=== PATIENT | male | born 1940 | race Caucasian/White ===

== ENCOUNTER 2017-03-26 07:05 | Inpatient (IN) | payer OTHER ==
[~2017-03-26] VITALS: Ht 180.3 cm; Wt 172.0 kg
--- NOTE | 2017-03-26 11:22 | ED ORDER SUMMARY ---
..... Patient: STEPHANIE SAPP OrderSheet [facility] VisitID: [id number] [address] [place] [address] 76y, M Registration Date/Time: 03/26/2017 ORDER SHEET Weight: 170.0 kg (stated) Allergies: NICKEL GENERAL ORDERS: CBC w Diff Urgent (07:52 03/26/2017 Ankita Cerda) (7:54 NHouse ER Tech1) CMP Urgent (07:52 03/26/2017 Ankita Cerda) (7:54 NHouse ER Tech1) UA-Culture if indicated Urgent (07:52 03/26/2017 Ankita Cerda) (7:54 NHouse ER Tech1) Blood Culture (No) (N/A) Urgent (08:34 03/26/2017 Ankita Cerda) (8:57 NHouse ER Tech1) Lactic Acid for Sepsis Protocol Urgent (08:34 03/26/2017 Ankita Cerda) (8:57 NHouse ER Tech1) PCT (Procalcitonin) Urgent (08:34 03/26/2017 Ankita Cerda) (8:57 NHouse ER Tech1) MEDICATION ORDERS: Tylenol PO 1,000 mg (NOW) (11:48 03/26/2017 MWinterer R.N. verbal order read back to Gucci FLOWER) (11:48 MWinterer R.N.) IV FLUIDS: IV Saline Lock (07:52 03/26/2017 Ankita Cerda) (7:55 MWinterer R.N.) Ceftriaxone IV 1 gm/50mL (NOW) (09:09 03/26/2017 Ankita Cerda) (Ack 9:10 MWinterer R.N.) (10:08 MWinterer R.N.) IV NS : initial bolus none -, then 150 mL/hr (NOW) (10:08 03/26/2017 MWinterer R.N. per protocol) (10:09 MWinterer R.N.) ORDER SHEET NOTES: [Electronically signed by Debbie French MD (13:46 03/26/2017)] [Electronically signed by Linda Hoffmann R.N. (15:58 03/26/2017)] [Electronically locked/signed by Linda Hoffmann R.N. (15:58 03/26/2017)]
--- NOTE | 2017-03-26 11:22 | ED NURSING NOTES ---
Clinical Report - Nurses [facility] [address] [place] [address] 03/26/2017 7:09 Patient: STEPHANIE SAPP TRIAGE Acuity: LEVEL 3. Chief Complaint: PAIN WITH URINATION and URINARY RETENTION and DIFFICULTY VOIDING and FREQUENCY VOIDING. Alert. No acute distress. SEPSIS SCREEN: Sepsis Screen. Negative (no infection suspected/documented). --07:20 Linda Hoffmann R.N. 07:12 03/26/17. BP: 150/54. HR: 107. RR: 14. O2 saturation: 94% on room air. Temp: 98.4 F (oral). Pain level now: 0/10. --07:20 Linda Hoffmann R.N. Weight: 170 kg stated. Height/Length: 71 inches Per Patient. BMI: 52.3. --07:20 Linda Hoffmann R.N. Medications Allopurinol Oral 300 mg, daily. Carvedilol 3.125 mg q day, 2x a day. Lisinopril Oral 2.5 mg, daily. Spironolactone Oral 25 mg, daily. --07:15 Linda Hoffmann R.N. Vitamin D Oral. --07:15 Linda Hoffmann R.N. Bumetanide Oral 1 mg. --07:15 Linda Hoffmann R.N. Ranitidine HCl Oral 150 mg, at bedtime. --07:15 Linda Hoffmann R.N. Lantus Subcutaneous 80 units, 2x a day. --07:15 Linda Hoffmann R.N. Medication/allergy information source: the patient. --07:20 Linda Hoffmann R.N. Allergies NICKEL. --07:16 Linda Hoffmann R.N. History Arrived by EMS. Historian: patient. Unaccompanied. [facility] physician ([facility]). Onset. (3 days ago). Treatment SUPERVISOR SPECIAL EDUCATION: None. EMS treatment SUPERVISOR SPECIAL EDUCATION verbally communicated. BP: 108/64. HR: 96. RR: 20. SOCIAL HX: Former smoker, end date 1999. No alcohol use or drug use. NUTRITIONAL RISK ASSESSMENT: The nutritional risk assessment revealed no deficiencies. FUNCTIONAL ASSESSMENT: Functional assessment performed: independent with the activities of daily living; uses walker; has poor vision in both eyes and wears glasses- this visual impairment is an ongoing problem. --07:20 Linda Hoffmann R.N. PROBLEMS: Obesity. Contusion. Sleep Apnea. COPD - Chronic Obstructive Pulmonary Disease. Congenital Heart Disease. Diabetes Mellitus. Gout. Neuropathy. --07:16 Linda Hoffmann R.N. ADDITIONAL SURGERIES: Appendectomy. Cardiac Catheterization. Hernia Repair. Tonsillectomy & Adenoidectomy. TURP - Trans Urethral Resection of Prostate. Uvula. --07:16 Linda Hoffmann R.N. Assessment GENERAL / NEURO / PSYCH: Alert. Oriented X 4. Appears in no acute distress. Ulen Coma Scale: 15- eyes open spontaneously (4); best verbal response- oriented x 4 (5); best motor response- obeys commands (6). Patient appears calm and cooperative. RESPIRATORY: Respirations not labored. CVS: Capillary refill less than 2 seconds. GI / : Abdomen soft and nontender. SKIN: Mucous membranes are pink. Skin is warm and dry. --07:20 Linda Hoffmann R.N. Interventions ID band on patient. To treatment room. --07:20 Linda Hoffmann R.N. PHYSICAL ASSESSMENT To room via stretcher. GENERAL / NEURO / PSYCH: Alert. Oriented X 4. Appears in no acute distress. HEENT: Mucous membranes are pink. RESPIRATORY: Respirations not labored. CVS: Cardiac rhythm: sinus tachycardia. Capillary refill less than 2 seconds. GI / : Abdomen soft and nontender. Normal genitalia. SKIN: Skin is warm and dry. --07:23 Linda Hoffmann R.N. NURSING PROGRESS NOTES Oxygen administered by nasal cannula at 2 liters. coating mixer supervisor, pulse oximeter and NIBP monitor placed on patient; cosmetic consultant- Lead II; monitor alarms on. Patient gowned. Head of bed elevated. Two patient identifiers checked. Call light placed in reach. Side rails up x 2. Bed placed in lowest position. Brakes of bed on. Patient ready for evaluation- chart flagged and ED physician notified. --07:21 Linda Hoffmann R.N. 07:53 03/26/17. Checked patient name and birthdate: patient confirmed urine collected with return of yellow-colored clear urine; sample sent to lab for urinalysis. Specimen labeled in the presence of the patient. --07:53 Linda Hoffmann R.N. 07:54 03/26/2017 Site #1 started via IV in the left antecubital space with an 20g angiocath, with aseptic technique and good blood return; two attempts. Blood drawn: rainbow set. Labeled in the presence of the patient and sent to the lab. Saline lock flushed with 10 mL saline. --07:54 Linda Hoffmann R.N. Point of care testing: performed by tech. Glucose: 124. Result shown to the RN. --09:29 Ephraim Sexton ER Tech1 09:40 03/26/2017 Site #1 removed. Catheter intact. Manual pressure and bandaid applied. --09:40 Linda Hoffmann R.N. 09:40 03/26/2017 Site #2 started via IV in the left upper arm with an 20g angiocath, with aseptic technique and good blood return; one attempt. Saline lock flushed with 10 mL saline. --09:40 Linda Hoffmann R.N. 10:08 03/26/2017 Started 2 gm of Ceftriaxone IVPB in bag #1 50 mL; at 150 mL/hr over 20 minute(s) via site #2 via IV pump. Allergies verified and confirmed 5 rights. IV patency established. IV site checked: no pain, redness, or swelling. IV flushed thoroughly pre- and post-medication administration. --10:08 Linda Hoffmann R.N. 10:09 03/26/2017 Started bag #1 1000 mL IV Fluids IV NS (Saline); at 150 mL/hr over 4 hour(s) via site #2 via IV pump. Allergies verified and confirmed 5 rights. IV patency established. IV site checked: no pain, redness, or swelling. IV flushed thoroughly pre- and post-medication administration (NS started to run with antibiotic). --10:09 Linda Hoffmann R.N. 11:35 03/26/17. BP: 141/45. HR: 115. RR: 20. O2 saturation: 95% on nasal cannula at 2 liters/minute. Temp: 100.1 F. --11:36 Linda Hoffmann R.N. 10:30 03/26/2017 Ceftriaxone IVPB Discontinued: bag #1 infused. Total amount infused: 50 mL. IV patency established. IV site checked: no pain, redness, or swelling. IV flushed thoroughly. --15:58 Linda Hoffmann R.N. 11:36 03/26/17. Reassessment after fluids administered and medication administered. He reports no complaints, he is calm and resting quietly and he has had no adverse reaction. --11:36 Linda Hoffmann R.N. 11:48 03/26/2017 Tylenol (Acetaminophen) PO 1000 mg given. Allergies verified and confirmed 5 rights. --11:48 Linda Hoffmann R.N. 13:05 03/26/2017 IV Saline Lock Drip IV Discontinued: bag #1 discontinued upon admission. Total amount infused: 500 mL. IV patency established. IV site checked: no pain, redness, or swelling. IV flushed thoroughly. --15:56 Linda Hoffmann R.N. 13:05 03/26/2017 IV Fluids IV NS Discontinued: bag #1 discontinued upon admission. Total amount infused: 500 mL. --15:58 Linda Hoffmann R.N. DISPOSITION / DISCHARGE Condition at departure: improved and stable. Disposition: observation. Transported via stretcher by [employer]. Report was given to a nurse via a phone call. Report included patient's care, treatment, medications, reviewed medication reconcilliation, and condition (including any recent changes or anticipated changes). All questions were answered. Report was acknowledged and care was transferred. (RASHEEDA Stevens). Patient's personal items include: glasses, C-pap machine; items were transported with the patient. He did not have dentures or a hearing aid. --13:08 Linda Hoffmann R.N. 12:59 03/26/17. BP: 117/45. HR: 109. RR: 20. O2 saturation: 96% on nasal cannula at 2 liters/minute. Temp: 99 F. Pain level now: 0/10. --13:08 Linda Hoffmann R.N. 13:05 03/26/2017 Site #[address] upon admission; patent, no pain and no signs of infection or infiltration. Flushed with 10 mL saline; flushes easily. --15:54 Linda Hoffmann R.N. Locked/Released at 03/26/2017 15:58 by Linda Hoffmann R.N.
--- NOTE | 2017-03-26 11:22 | ED ORDER SUMMARY ---
..... Patient: STEPHANIE SAPP OrderSheet [facility] VisitID: [id number] [address] [place] [address] 76y, M Registration Date/Time: 03/26/2017 ORDER SHEET Weight: 170.0 kg (stated) Allergies: NICKEL GENERAL ORDERS: CBC w Diff Urgent (07:52 03/26/2017 Ankita Cerda) (7:54 NHouse ER Tech1) CMP Urgent (07:52 03/26/2017 Ankita Cerda) (7:54 NHouse ER Tech1) UA-Culture if indicated Urgent (07:52 03/26/2017 Ankita Cerda) (7:54 NHouse ER Tech1) Blood Culture (No) (N/A) Urgent (08:34 03/26/2017 Ankita Cerda) (8:57 NHouse ER Tech1) Lactic Acid for Sepsis Protocol Urgent (08:34 03/26/2017 Ankita eCrda) (8:57 NHouse ER Tech1) PCT (Procalcitonin) Urgent (08:34 03/26/2017 Ankita Cerda) (8:57 NHouse ER Tech1) MEDICATION ORDERS: Tylenol PO 1,000 mg (NOW) (11:48 03/26/2017 MWinterer R.N. verbal order read back to Gucci FLOWER) (11:48 MWinterer R.N.) IV FLUIDS: IV Saline Lock (07:52 03/26/2017 Ankita Cerda) (7:55 MWinterer R.N.) Ceftriaxone IV 1 gm/50mL (NOW) (09:09 03/26/2017 Ankita Cerda) (Ack 9:10 MWinterer R.N.) (10:08 MWinterer R.N.) IV NS : initial bolus none -, then 150 mL/hr (NOW) (10:08 03/26/2017 MWinterer R.N. per protocol) (10:09 MWinterer R.N.) ORDER SHEET NOTES: [Electronically signed by Debbie French MD (13:46 03/26/2017)] [Electronically signed by Linda Hoffmann R.N. (15:58 03/26/2017)] [Electronically locked/signed by Linda Hoffmann R.N. (15:58 03/26/2017)]
--- NOTE | 2017-03-26 11:22 | ED CLINICAL REPORT ---
Clinical Report - Physicians/Mid Levels [facility] [address] [place] [address] 03/26/2017 7:09 Patient: STEPHANIE SAPP Time Seen: 07:47; initial patient contact. Arrived- By private vehicle. Historian- patient. HISTORY OF PRESENT ILLNESS Chief Complaint: DYSURIA. This started about 3 days ago and is still present. The problem is described as mild. No penile discharge or flank pain. He has had discomfort with urination and urgency of urination. The patient has had urinary frequency. Able to void. Not voiding only small amounts. Sexual history is noncontributory. Similar symptoms previously: None. Recent medical care: Not recently seen/assessed. REVIEW OF SYSTEMS No fever, chills, flank pain, hematuria or vomiting. No diarrhea. He has had abdominal pain. All systems otherwise negative, except as recorded above. PAST HISTORY ( Obesity. Contusion. Sleep Apnea. COPD - Chronic Obstructive Pulmonary Disease. Congenital Heart Disease. Diabetes Mellitus. Gout. Neuropathy. SURGERIES: Appendectomy. Cardiac Catheterization. Hernia Repair. Tonsillectomy & Adenoidectomy. TURP - Trans Urethral Resection of Prostate. Uvula.). Medications: Lantus Subcutaneous 80 units, 2x a day. Ranitidine HCl Oral 150 mg, at bedtime. Bumetanide Oral 1 mg. Vitamin D Oral. Allopurinol Oral 300 mg, daily. Carvedilol 3.125 mg q day, 2x a day. Lisinopril Oral 2.5 mg, daily. Spironolactone Oral 25 mg, daily. Allergies: NICKEL. SOCIAL HISTORY Former smoker. No alcohol use or drug use. ADDITIONAL NOTES The nursing notes have been reviewed. PHYSICAL EXAM Vital Signs: 03/26/2017 07:12 BP: 150/54. HR: 107. RR: 14. O2 saturation: 94%. Temp: 98.4 F. Pain level now: 0/10. Have been reviewed. Hypertensive. Tachycardic. Respiratory rate normal. Temperature normal. Oxygen saturation: Pt is on CPAP 24/7- oxygen saturation low. Appearance: Alert. Oriented X3. No acute distress. ENT: Normal external inspection. CVS: Heart sounds normal. Rate normal. Rhythm normal. Respiratory: Mild respiratory distress with tachypnea. No rales or wheezes. Abdomen: Soft. Mild tenderness in the lower abdomen. No guarding or rebound tenderness. Bowel sounds normal. No organomegaly. No mass. Back: Mild CVA tenderness on the right and left. Skin: Skin warm and dry. Normal skin color. Neuro: Oriented X 3. LABS, X-RAYS, AND EKG Laboratory Tests: UA-Culture if indicated: (SUMEET: 03/26/2017 07:45) ( [facility] 03/26/2017 08:19) Final results Test Result Flag Units (Reference) URINE COLOR YELLOW URINE APPEARANCE SL CLOUDY URINE GLUCOSE NEGATIVE (NEGATIVE) URINE BILIRUBIN NEGATIVE (NEGATIVE) URINE KETONE NEGATIVE (NEGATIVE) URINE SPECIFIC GRAVITY 1.025 (1.010-1.030) URINE PH 6.0 (5.0-8.0) URINE PROTEIN 2+ (NEGATIVE) URINE UROBILINOGEN 0.2 EU/dL (0.2-1.0) URINE NITRITE NEGATIVE (NEGATIVE) URINE BLOOD 3+ (NEGATIVE) URINE LEUK ESTERASE POSITIVE (NEGATIVE) URINE RBC 10-25 rbc/hpf (0-1) URINE WBC >100 wbc/hpf (0-1) URINE EPITHELIAL CELLS 3-5 EPI/hpf (0-5) URINE BACTERIA MODERATE (2+ TO 3+) (NONE SEEN) URINE COMMENT CULTURE INDICATED URINE CULTURES ARE SET-UP BASED ON THE FOLLOWING CRITERIA:POSITIVE NITRITEPOSITIVE LEUKOCYTE ESTERASEGREATER THAN 10 WHITE BLOOD CELLSMODERATE (2+) OR GREATER BACTERIA CBC w Diff: (SUMEET: 03/26/2017 07:25) ( [facility] 03/26/2017 08:23) IP Test Result Flag Units (Reference) WHITE BLOOD COUNT 18.6 H K/uL (4.5-11.5) RED BLOOD COUNT 4.45 L M/uL (4.50-5.90) HEMOGLOBIN 13.5 gm/dL (13.5-17.5) HEMATOCRIT 40.6 L % (41.0-53.0) MEAN CELL VOLUME 91 fL (80-100) MEAN CORPUSCULAR HGB 30 pg (26-34) MEAN CORPUSCULAR HGB CONC 33 g/dL (31-37) RED CELL DISTRIBUTION WIDTH 14.8 % (11.6-14.8) PLATELET COUNT 191 K/uL (150-400) [id number]: (SUMEET: 03/26/2017 09:40) ( MsgRcv[facility] 03/26/2017 10:33) Final results Test Result Flag Units (Reference) LACTIC ACID SEPSIS PROTOCOL 1.3 mmol/L (0.4-2.0) [id number]: (SUMEET: 03/26/2017 07:25) ( MsgRcvd 03/26/2017 09:26) Final results Test Result Flag Units (Reference) PROCALCITONIN <0.5 ng/mL (0-0.5) PCT Concentration: Interpretation : Risk/option for action PCT <=0.5 ng/mL : Systemic : Low risk forinfection(sepsis): progression to severeis not likely. : systemic infection.Local bacterial : CAUTION-PCT levelsinfection is : below 0.5 ng/mL do notpossible. : exclude an infection,because localizedinfections (withoutsystemic signs) may beassociated with suchlow levels. If PCT ismeasured very earlyafter a bacterialchallenge (usually <6hours), these valuesmay still be low. Inthis case PCT shouldbe re-assessed 6-24hours later. PCT >0.5 and : Systemic infection: Moderate risk for<= 2 ng/mL : (sepsis) is : progression to severepossible, but : systemic infection.other conditions : The patient should beare known to : closely monitoredelevate PCT. : both clinically andby re-assessing PCTwithin 6-24 hours. PCT > 2 ng/mL : Systemic infection: High risk for(sepsis) is likely: progression to severeunless other : systemic infection.causes are known. : PCT >= 10 ng/mL : Important systemic: High likelihood ofinflammatory : severe sepsis orresponse, almost : septic shock.exclusively due to:severe bacterial :sepsis or septic :shock. : CMP: (SUMEET: 03/26/2017 07:25) ( MsgRcvd 03/26/2017 08:19) Final results Test Result Flag Units (Reference) GLUCOSE 151 H mg/dL (70-110) BUN 15 mg/dL (7-18) CREATININE 1.2 mg/dL (0.6-1.3) Estimated GFR >60 mL/min Estimated GFR- >60 mL/min Note: Persistent reduction over 3 months in eGFR<60 mL/min/1.73 m2 defines CKD. Patients with eGFR values>=60 mL/min/1.73 m2 may also have CKD if evidence ofpersistent proteinuria. Additional information may be foundat www.kidney.org. SODIUM 138 mmol/L (136-145) POTASSIUM 4.0 mmol/L (3.5-5.1) CHLORIDE 100 mmol/L (98-107) CARBON DIOXIDE 31 mmol/L (21-32) CALCIUM 8.7 mg/dL (8.5-10.1) TOTAL PROTEIN 7.9 g/dL (6.4-8.2) ALBUMIN 3.1 L g/dL (3.3-5.0) BILIRUBIN, TOTAL 1.5 H mg/dL (0.0-1.0) ALKALINE PHOSPHATASE 69 U/L (46-116) AST (SGOT) 22 U/L (15-37) ALT (SGPT) 38 U/L (12-78) . Pulse Oximetry: 03/26/2017 07:12 O2 saturation: 94%. (FIO2 - room air). Interpretation: normal. PROGRESS AND PROCEDURES Course of Care: Went in to update pt on current lab results and pt having rigors. Patient was signed out to me by the off going emergency physician, pending remainder of laboratory studies. Pro calcitonin and lactate levels were both negative. However I did fill that given his history of diabetes, the patient should be admitted for his UTI to make sure that he does not become septic. He was given IV Rocephin for his urinary tract infection his white blood cell count was found to be 18.6. Patient did remain hemodynamically stable throughout his stay in the emergency department. He did develop a fever for which he was given Tylenol. Discussed case with patient's primary care provider, (Trice). Reviewed test results and need for additional work-up. Agreed upon treatment plan and decision to admit. Health care provider will see patient in hospital. Patient counseled in person regarding the patient's stable condition, test results, diagnosis and need for follow-up. Concerns were addressed. Old medical records reviewed. Disposition: Discharged. Condition: stable. CLINICAL IMPRESSION Acute urinary tract infection with cystitis. (Electronically signed by Debbie French MD 03/26/2017 13:46)
--- NOTE | 2017-03-26 11:22 | ED NURSING NOTES ---
Clinical Report - Nurses [facility] [address] [place] [address] 03/26/2017 7:09 Patient: STEPHANIE SAPP TRIAGE Acuity: LEVEL 3. Chief Complaint: PAIN WITH URINATION and URINARY RETENTION and DIFFICULTY VOIDING and FREQUENCY VOIDING. Alert. No acute distress. SEPSIS SCREEN: Sepsis Screen. Negative (no infection suspected/documented). --07:20 Linda Hoffmann R.N. 07:12 03/26/17. BP: 150/54. HR: 107. RR: 14. O2 saturation: 94% on room air. Temp: 98.4 F (oral). Pain level now: 0/10. --07:20 Linda Hoffmann R.N. Weight: 170 kg stated. Height/Length: 71 inches Per Patient. BMI: 52.3. --07:20 Linda Hoffmann R.N. Medications Allopurinol Oral 300 mg, daily. Carvedilol 3.125 mg q day, 2x a day. Lisinopril Oral 2.5 mg, daily. Spironolactone Oral 25 mg, daily. --07:15 Linda Hoffmann R.N. Vitamin D Oral. --07:15 Linda Hoffmann R.N. Bumetanide Oral 1 mg. --07:15 Linda Hoffmann R.N. Ranitidine HCl Oral 150 mg, at bedtime. --07:15 Linda Hoffmann R.N. Lantus Subcutaneous 80 units, 2x a day. --07:15 Linda Hoffmann R.N. Medication/allergy information source: the patient. --07:20 Linda Hoffmann R.N. Allergies NICKEL. --07:16 Linda Hoffmann R.N. History Arrived by EMS. Historian: patient. Unaccompanied. [facility] physician ([facility]). Onset. (3 days ago). Treatment CURB HOP: None. EMS treatment CURB HOP verbally communicated. BP: 108/64. HR: 96. RR: 20. SOCIAL HX: Former smoker, end date 1999. No alcohol use or drug use. NUTRITIONAL RISK ASSESSMENT: The nutritional risk assessment revealed no deficiencies. FUNCTIONAL ASSESSMENT: Functional assessment performed: independent with the activities of daily living; uses walker; has poor vision in both eyes and wears glasses- this visual impairment is an ongoing problem. --07:20 Linda Hoffmann R.N. PROBLEMS: Obesity. Contusion. Sleep Apnea. COPD - Chronic Obstructive Pulmonary Disease. Congenital Heart Disease. Diabetes Mellitus. Gout. Neuropathy. --07:16 Linda Hoffmann R.N. ADDITIONAL SURGERIES: Appendectomy. Cardiac Catheterization. Hernia Repair. Tonsillectomy & Adenoidectomy. TURP - Trans Urethral Resection of Prostate. Uvula. --07:16 Linda Hoffmann R.N. Assessment GENERAL / NEURO / PSYCH: Alert. Oriented X 4. Appears in no acute distress. [place] Coma Scale: 15- eyes open spontaneously (4); best verbal response- oriented x 4 (5); best motor response- obeys commands (6). Patient appears calm and cooperative. RESPIRATORY: Respirations not labored. CVS: Capillary refill less than 2 seconds. GI / : Abdomen soft and nontender. SKIN: Mucous membranes are pink. Skin is warm and dry. --07:20 Linda Hoffmann R.N. Interventions ID band on patient. To treatment room. --07:20 Linda Hoffmann R.N. PHYSICAL ASSESSMENT To room via stretcher. GENERAL / NEURO / PSYCH: Alert. Oriented X 4. Appears in no acute distress. HEENT: Mucous membranes are pink. RESPIRATORY: Respirations not labored. CVS: Cardiac rhythm: sinus tachycardia. Capillary refill less than 2 seconds. GI / : Abdomen soft and nontender. Normal genitalia. SKIN: Skin is warm and dry. --07:23 Linda Hoffmann R.N. NURSING PROGRESS NOTES Oxygen administered by nasal cannula at 2 liters. hospital monitor, pulse oximeter and NIBP monitor placed on patient; quality assurance monitor chassis- Lead II; monitor alarms on. Patient gowned. Head of bed elevated. Two patient identifiers checked. Call light placed in reach. Side rails up x 2. Bed placed in lowest position. Brakes of bed on. Patient ready for evaluation- chart flagged and ED physician notified. --07:21 Linda Hoffmann R.N. 07:53 03/26/17. Checked patient name and birthdate: patient confirmed urine collected with return of yellow-colored clear urine; sample sent to lab for urinalysis. Specimen labeled in the presence of the patient. --07:53 Linda Hoffmann R.N. 07:54 03/26/2017 Site #1 started via IV in the left antecubital space with an 20g angiocath, with aseptic technique and good blood return; two attempts. Blood drawn: rainbow set. Labeled in the presence of the patient and sent to the lab. Saline lock flushed with 10 mL saline. --07:54 Linda Hoffmann R.N. Point of care testing: performed by tech. Glucose: 124. Result shown to the RN. --09:29 Ephraim Sexton ER Tech1 09:40 03/26/2017 Site #1 removed. Catheter intact. Manual pressure and bandaid applied. --09:40 Linda Hoffmann R.N. 09:40 03/26/2017 Site #2 started via IV in the left upper arm with an 20g angiocath, with aseptic technique and good blood return; one attempt. Saline lock flushed with 10 mL saline. --09:40 Linda Hoffmann R.N. 10:08 03/26/2017 Started 2 gm of Ceftriaxone IVPB in bag #1 50 mL; at 150 mL/hr over 20 minute(s) via site #2 via IV pump. Allergies verified and confirmed 5 rights. IV patency established. IV site checked: no pain, redness, or swelling. IV flushed thoroughly pre- and post-medication administration. --10:08 Linda Hoffmann R.N. 10:09 03/26/2017 Started bag #1 1000 mL IV Fluids IV NS (Saline); at 150 mL/hr over 4 hour(s) via site #2 via IV pump. Allergies verified and confirmed 5 rights. IV patency established. IV site checked: no pain, redness, or swelling. IV flushed thoroughly pre- and post-medication administration (NS started to run with antibiotic). --10:09 Linda Hoffmann R.N. 11:35 03/26/17. BP: 141/45. HR: 115. RR: 20. O2 saturation: 95% on nasal cannula at 2 liters/minute. Temp: 100.1 F. --11:36 Linda Hoffmann R.N. 10:30 03/26/2017 Ceftriaxone IVPB Discontinued: bag #1 infused. Total amount infused: 50 mL. IV patency established. IV site checked: no pain, redness, or swelling. IV flushed thoroughly. --15:58 Linda Hoffmann R.N. 11:36 03/26/17. Reassessment after fluids administered and medication administered. He reports no complaints, he is calm and resting quietly and he has had no adverse reaction. --11:36 Linda Hoffmann R.N. 11:48 03/26/2017 Tylenol (Acetaminophen) PO 1000 mg given. Allergies verified and confirmed 5 rights. --11:48 Linda Hoffmann R.N. 13:05 03/26/2017 IV Saline Lock Drip IV Discontinued: bag #1 discontinued upon admission. Total amount infused: 500 mL. IV patency established. IV site checked: no pain, redness, or swelling. IV flushed thoroughly. --15:56 Linda Hoffmann R.N. 13:05 03/26/2017 IV Fluids IV NS Discontinued: bag #1 discontinued upon admission. Total amount infused: 500 mL. --15:58 Linda Hoffmann R.N. DISPOSITION / DISCHARGE Condition at departure: improved and stable. Disposition: observation. Transported via stretcher by [email or web address]. Report was given to a nurse via a phone call. Report included patient's care, treatment, medications, reviewed medication reconcilliation, and condition (including any recent changes or anticipated changes). All questions were answered. Report was acknowledged and care was transferred. (RASHEEDA Stevens). Patient's personal items include: glasses, C-pap machine; items were transported with the patient. He did not have dentures or a hearing aid. --13:08 Linda Hoffmann R.N. 12:59 03/26/17. BP: 117/45. HR: 109. RR: 20. O2 saturation: 96% on nasal cannula at 2 liters/minute. Temp: 99 F. Pain level now: 0/10. --13:08 Linda Hoffmann R.N. 13:05 03/26/2017 Site #[address] upon admission; patent, no pain and no signs of infection or infiltration. Flushed with 10 mL saline; flushes easily. --15:54 Linda Hoffmann R.N. Locked/Released at 03/26/2017 15:58 by Linda Hoffmann R.N.
[2017-03-26] MEDS ORDERED: BUMETANIDE1 MG PO (12:29)
[2017-03-26] MEDS ORDERED: COREG3.125 MG PO (12:29)
[2017-03-26] MEDS ORDERED: ZYLOPRIM300 MG PO (12:29)
[2017-03-26] MEDS ORDERED: LANTUS SOL100 UNITS/ (12:30)
[2017-03-26] MEDS ORDERED: ZESTRIL2.5 MG PO (12:30)
[2017-03-26] MEDS ORDERED: [UNRECOGNIZED DRUG - OTHER] (12:31)
[2017-03-26] MEDS ORDERED: SPIRONOLACTONE25 MG PO (12:31)
[2017-03-26] MEDS ORDERED: WAL ZAN (12:31)
[2017-03-26] MEDS ORDERED: VITAMIN D-31000 UNIT PO (12:32)
[2017-03-26 13:52] VITALS: BP 118/41
--- NOTE | 2017-03-26 15:59 | ED DISCHARGE INSTRUCTIONS ---
Patient: STEPHANIE SAPP General Instructions [facility] VisitID: [id number] [address] [place] [address] 76y, M Registration Date/Time: 03/26/2017 Acute urinary tract infection with cystitis. (Electronically signed by Debbie French MD 03/26/2017 13:46)
--- NOTE | 2017-03-26 15:59 | ED MAR SUMMARY ---
..... Medication Administration Record [facility] [address] [place] [address] Patient: STEPHANIE SAPP Visit ID: [id number] 76y, M Weight: 170.0 kg Height/Length: 71 in BMI: 52.3 ALLERGIES: NICKEL Start 10:08 03/26/2017 Linda Hoffmann R.N., Stop 10:30 03/26/2017 Linda Hoffmann R.N. Medication Administered: CEFTRIAXONE [IVPB], Dose: 2 gm IVPB over 20 minute(s), Rate: 150 mL/hr, Dispensed: 50 mL bag, Site: #2 left upper arm. Medication Ordered: Ceftriaxone IV 1 gm/50mL (NOW). Start 10:09 03/26/2017 Linda Hoffmann R.N., Stop 13:05 03/26/2017 Linda Hoffmann R.N. Medication Administered: IV NS (SALINE), Dose: IV Fluids over 4 hour(s), Rate: 150 mL/hr, Dispensed: 1000 mL bag, Site: #2 left upper arm. Medication Ordered: IV NS : initial bolus none -, then 150 mL/hr (NOW). Given 11:48 03/26/2017 Linda Hoffmann R.N. Medication Administered: TYLENOL [PO] (ACETAMINOPHEN), Dose: 1000 mg PO. Medication Ordered: Tylenol PO 1,000 mg (NOW).
--- NOTE | 2017-03-26 15:59 | ED MAR SUMMARY ---
..... Medication Administration Record [facility] [address] [place] [address] Patient: STEPHANIE SAPP Visit ID: [id number] 76y, M Weight: 170.0 kg Height/Length: 71 in BMI: 52.3 ALLERGIES: NICKEL Start 10:08 03/26/2017 Linda Hoffmann R.N., Stop 10:30 03/26/2017 Linda Hoffmann R.N. Medication Administered: CEFTRIAXONE [IVPB], Dose: 2 gm IVPB over 20 minute(s), Rate: 150 mL/hr, Dispensed: 50 mL bag, Site: #2 left upper arm. Medication Ordered: Ceftriaxone IV 1 gm/50mL (NOW). Start 10:09 03/26/2017 Linda Hoffmann R.N., Stop 13:05 03/26/2017 Linda Hoffmann R.N. Medication Administered: IV NS (SALINE), Dose: IV Fluids over 4 hour(s), Rate: 150 mL/hr, Dispensed: 1000 mL bag, Site: #2 left upper arm. Medication Ordered: IV NS : initial bolus none -, then 150 mL/hr (NOW). Given 11:48 03/26/2017 Linda Hoffmann R.N. Medication Administered: TYLENOL [PO] (ACETAMINOPHEN), Dose: 1000 mg PO. Medication Ordered: Tylenol PO 1,000 mg (NOW).
--- NOTE | 2017-03-26 15:59 | ED MED RECONCILIATION SUMMARY ---
Patient: STEPHANIE SAPP Medication Reconciliation Report [facility] VisitID: [id number] [address] [place] [address] 76y, M Registration Date/Time: 03/26/2017 Weight: 170.0 kg Height/Length: 71 in. BMI: 52.3 ALLERGIES: NICKEL The patient's Home Medications are listed below: THE FOLLOWING MEDICATIONS NEED TO BE RECONCILED: Allopurinol Oral 300 mg, daily Bumetanide Oral 1 mg Carvedilol 3.125 mg q day, 2x a day Lantus Subcutaneous 80 units, 2x a day Lisinopril Oral 2.5 mg, daily Ranitidine HCl Oral 150 mg, at bedtime Spironolactone Oral 25 mg, daily Vitamin D Oral The source(s) of the original Home Medication information: patient The following Medications were given to the patient in the Emergency Department: Ceftriaxone [IVPB] IVPB bolus 0, then 2 gm 150 mL/hr, administered: 03/26/2017 10:08:00 AM IV NS IV Fluids bolus 0, then 150 mL/hr, administered: 03/26/2017 10:09:00 AM Tylenol [PO] PO 1000 mg, administered: 03/26/2017 11:48:00 AM The following Medications were prescribed to the patient: None.
--- NOTE | 2017-03-26 15:59 | ED MED RECONCILIATION SUMMARY ---
Patient: STEPHANIE SAPP Medication Reconciliation Report [facility] VisitID: [id number] [address] [place] [address] 76y, M Registration Date/Time: 03/26/2017 Weight: 170.0 kg Height/Length: 71 in. BMI: 52.3 ALLERGIES: NICKEL The patient's Home Medications are listed below: THE FOLLOWING MEDICATIONS NEED TO BE RECONCILED: Allopurinol Oral 300 mg, daily Bumetanide Oral 1 mg Carvedilol 3.125 mg q day, 2x a day Lantus Subcutaneous 80 units, 2x a day Lisinopril Oral 2.5 mg, daily Ranitidine HCl Oral 150 mg, at bedtime Spironolactone Oral 25 mg, daily Vitamin D Oral The source(s) of the original Home Medication information: patient The following Medications were given to the patient in the Emergency Department: Ceftriaxone [IVPB] IVPB bolus 0, then 2 gm 150 mL/hr, administered: 03/26/2017 10:08:00 AM IV NS IV Fluids bolus 0, then 150 mL/hr, administered: 03/26/2017 10:09:00 AM Tylenol [PO] PO 1000 mg, administered: 03/26/2017 11:48:00 AM The following Medications were prescribed to the patient: None.
--- NOTE | 2017-03-26 15:59 | ED DISCHARGE INSTRUCTIONS ---
Patient: STEPHANIE SAPP General Instructions [facility] VisitID: [id number] [address] [place] [address] 76y, M Registration Date/Time: 03/26/2017 Acute urinary tract infection with cystitis. (Electronically signed by Debbie French MD 03/26/2017 13:46)
[2017-03-26 19:52] VITALS: BP 124/69
--- NOTE | 2017-03-26 20:55 | HISTORY AND PHYSICAL ---
ADMITTED: 03/26/2017 CHIEF COMPLAINT: 1. Fever, frequency and pain with urination HISTORY OF PRESENT ILLNESS: The patient is a 76-year-old white male who developed low-grade fever, frequency and burning with urination, causing him to come in to the emergency department today. These symptoms started 2 days ago, on Saturday, 2016. He has been feverish and with his fever he has been quite weak and has had major difficulties getting up and moving around and walking, particularly over the last 24-48 hours. He is diabetic. He is morbidly obese. He has not had any other acute problems. MEDICAL/SURGICAL HISTORY: Past medical history: Remarkable for morbid obesity, adult-onset diabetes, hypertension, diabetic peripheral neuropathy, hyperlipidemia, coronary artery disease, psoriasis, and sleep apnea. Past surgical history: Remarkable for remote appendectomy. He also has had bilateral hernia repairs, heart catheterization x3. He has had prostate gland surgery at one time. He has had oral surgery for having to improve the sleep apnea issues. He also has had prostate gland surgery. MEDICATIONS: Include: 1. Allopurinol 300 mg daily. 2. Carvedilol 3.125 mg every 12 hours. 3. Lisinopril 2.5 mg daily. 4. Spironolactone 25 mg q.a.m. 5. Bumetanide 1 mg q.a.m. 6. Ranitidine 150 mg at bedtime. 7. Vitamin D3, dose not clear. 8. Lantus insulin 80 units subcutaneous every 12 hours. 9. Humalog or NovoLog insulin 40 units before breakfast and before lunch and 45 -50 units before supper. ALLERGIES: 1. NONE. SOCIAL HISTORY: Indicates the patient is retired and living with this . He is morbidly obese. He is a former smoker, but quit about 20 years ago. He does not drink alcohol. FAMILY HISTORY: Remarkable for father who at age 89 of old age. His father also had hypertension, some heart problems and mild diabetes. The patient's mother at age 78 of heart problems. She also had diabetes. The patient has 1 son, who was killed in a motorcycle accident about 4 years ago. REVIEW OF SYSTEMS: HEENT: Okay. Respiratory: Remarkable for shortness of breath with minimal exertion, which has been a longstanding problem related to his obesity and other problems. He also has quite significant sleep apnea and uses his CPAP mask at night, as well as when taking naps. Cardiovascular: Has been okay with no acute chest pain and no major peripheral edema. Gastrointestinal: Remarkable for frequent loose stools, which he feels is related to his diuretics. Genitourinary: Noted above with frequency of urination. He has had no blood in his urine. Musculoskeletal: Remarkable for generalized weakness associated with this fever and current illness. Neurologic: Basically okay with no focal weakness, numbness or major confusion problems. He has had some neuropathy pain problems, though he does have impaired sensation in his feet. Skin: Remarkable for scattered problems with psoriasis, which he treats with topical medications. PHYSICAL EXAMINATION: GENERAL: Reveals patient to be morbidly obese white male, currently in bed, wearing his CPAP mask. VITAL SIGNS: Temperature is 100-100.5 degrees. Pulse is in the 100-110 range and regular. Blood pressure is in the 118/40 range. Oxygen saturations 96% on 2 L per minute of supplemental oxygen. HEENT: Head is normal. Ear canals and tympanic membranes are normal. Eyes show normal extraocular movements. Conjunctivae, sclerae are clear. Fundi showed no obvious abnormalities. Nose is clear. Mouth and throat are okay with no major abnormalities. NECK: Short and thick. No distinct carotid bruits are heard. CHEST: Difficult to examine due to patient's obese state and difficulty sitting. Chest generally clear to auscultation and percussion. There is no obvious axillary adenopathy. HEART: Reveals a normal S1 and S2 with a grade 1-2/6 systolic murmur along left sternal border. There is no S3. ABDOMEN: Morbidly obese and nontender. Bowel tones are present and normal. GENITALIA: Show the testes descended bilaterally and testes to be somewhat atrophic. Head of the penis is quite protected, but when exposed is normal. There is no phimosis or purulence underneath the foreskin. Rectal: No mass, stool brownish and gusisc ng., prostate not esaily felt due to body habitus and hx of prior TUR, not grossly enlarged EXTREMITIES: Show trace to +1 lower leg edema. +2 dorsalis pedis pulses are noted left and right. Sensation on the feet seems to be okay to light touch. NEUROLOGIC: Reveals the patient to be alert and oriented x3. Cranial nerves are basically symmetric. Motor and sensory examinations are basically symmetric. LAB/IMAGING: Laboratory studies show hemoglobin to be 13.5, hematocrit is 40.6, white blood cell count is 18,600. Sodium is 138, potassium 4.0, chloride 106, CO2 is 31. Lactic acid is 1.3. Total bilirubin is 1.5, SGOT is 22, SGPT is 30, alkaline phosphatase is 68. Procalcitonin is less than 0.05. Urinalysis shows 2+ protein, specific gravity of 1.025, greater than 100 white blood cells and 3+ red blood cells per high-power field. Leukocyte esterase is positive. No imaging tests have been done. Heart rhythm strip is stable. EKG: Not done. IMPRESSION: 1. The patient is presenting with an acute urinary tract infection with fever and weakness. He is not able to be ambulatory. 2. He also has morbid obesity. 3. Sleep apnea. 4. Adult-onset diabetes. 5. Hypertension. 6. Coronary artery disease. 7. Gout. 8. Psoriasis issues. PLAN: The patient is admitted and is started on IV antibiotics with ceftriaxone. He will most likely be staying at least 2 midnights. This is due to his morbid obesity and difficulty with moving around and weakness. He also needs to have the organism triggering the infection identified so antibiotic therapy can be adjusted appropriately. He will have his blood sugars followed during hospitalization and we will continue with his usual Lantus insulin. Additionally, his usual dose of the Humalog insulin will be reduced to 30 units before each meal. He will continue with his continuous positive airway pressure mask when sleeping, either when sleeping at night or with naps.
[2017-03-26 22:56] VITALS: BP 129/72
[2017-03-27] VITALS (8 sets, daily range): BP systolic 107–134; BP diastolic 39–88
[2017-03-28] VITALS (7 sets, daily range): BP systolic 96–143; BP diastolic 58–79
--- NOTE | 2017-03-28 14:30 | DIAGNOSTIC IMAGING REPORT ---
PROCEDURE: XR CHEST 1 VIEW INDICATION: FEVER DECREASED LUNG SOUNDS TECHNIQUE: Single view chest. 1323 hours COMPARISON: 06/01/2016 FINDINGS: The cardiopulmonary contour and central vasculature are stable, within normal limits. The lungs are clear without focal consolidation, pleural effusion or pneumothorax. The osseous structures are intact. IMPRESSION: 1. Negative chest. 2. Stable compared to the prior study.
[2017-03-29 02:16] VITALS: BP 136/80
[2017-03-29 07:06] VITALS: BP 131/58
[2017-03-29 10:18] VITALS: BP 129/59
[2017-03-29 13:57] VITALS: BP 122/56
[2017-03-29 19:17] VITALS: BP 131/55
[2017-03-29 22:38] VITALS: BP 123/60
[2017-03-30 03:00] VITALS: BP 130/78
[2017-03-30 07:01] VITALS: BP 143/55
[2017-03-30 10:18] VITALS: BP 135/56
[2017-03-30 14:21] VITALS: BP 110/60
[2017-03-30 18:07] VITALS: BP 119/52
[2017-03-30 22:42] VITALS: BP 104/50
[2017-03-31 02:19] VITALS: BP 117/58
[2017-03-31 05:20] VITALS: BP 110/52
[2017-03-31 05:21] VITALS: BP 110/52
[2017-03-31 06:51] VITALS: BP 113/56
[2017-03-31] MEDS ORDERED: CIPROFLOXACIN500 M1 PO (08:32)
[2017-03-31] MEDS ORDERED: ATORVASTATIN CA10 MG PO (08:35)
[2017-03-31] MEDS ORDERED: ASPIRIN81 M1 PO (08:39)
[2017-03-31] MEDS ORDERED: ISOSORBIDE MONO30 MG PO (08:42)
--- NOTE | 2017-03-31 09:02 | Provider's Discharge Care Plan ---
Problem, Goal, Plan Problem List 1. Acute prostatitis Goals: Improve disease control, Improve function, Improved health/wellness, Increase independence, Improve nutrition status Instructions: Follow up as directed, Increase activity level, Take meds as directed, Continue ciprofloxacin 750 mg twice daily and 2 wk, then see Dr. Carnes to determine need for refill. 2. Coronary artery arteriosclerosis Goals: Improve function, Improved health/wellness, Increase independence Instructions: Follow up as directed, Increase activity level, Take meds as directed, Reduce stress, Add atorvastatin 20 at suppertime, aspirin 81 mg daily and isosorbide mononitrate 30 mmg every am. 3. Type 2 diabetes mellitus Goals: Improve disease control, Improve function, Improved health/wellness, Increase independence Instructions: Follow up as directed, Increase activity level, Take meds as directed, Avoid processed foods, Reduce stress, Continu with Lantuks insulin at 70 units am and evening. Hold off on Humalog-Novalot shortacting insulin for now. 4. Morbid obesity with BMI of 50.0-59.9, adult Goals: Improve disease control, Improve function, Improved health/wellness, Increase independence Instructions: Follow up as directed, Increase activity level, Take meds as directed, contionue to work on weight reduction. 5. Generalized weakness Instructions: Follow up as directed, Increase activity level, Take meds as directed, Work with home PT and OT to help improve mobility and function 6. Essential hypertension Goals: Improve disease control, Improve function, Improved health/wellness Instructions: Follow up as directed, Increase activity level, Take meds as directed, Reduce stress, Continue Bumetanide 1 mg daily, carvedilol 3.125 mg am and evening and lisinopril 2.5 mg dialy. Stop spironolactone for the time being. 7. Hyperuricemia Goals: Improve disease control, Improve function, Improved health/wellness Instructions: Follow up as directed, Increase activity level, Take meds as directed, continue allopurinol 300 mgtab at 1/2 tab daily to prevent gout.
--- NOTE | 2017-04-01 17:24 | DISCHARGE SUMMARY ---
ADMIT DATE: 03/26/2017 DISCHARGE DATE: 03/31/2017 ADMITTING DIAGNOSES: 1. Urinary tract infection. DISCHARGE DIAGNOSES: 1. Probable acute prostatitis and urinary tract infection secondary to Escherichia coli. 2. Other problems include morbid obesity. 3. Sleep apnea. 4. Hypertension. 5. Coronary artery disease. 6. History of gout. 7. Adult-onset diabetes, well controlled. PROCEDURE: 1. None BRIEF HISTORY: Please see the dictated history and physical exam for details concerning admission. HOSPITAL COURSE: The patient is a 77-year-old male who presented to the emergency department with frequency of urination and fevers and significant weakness. He was not really able to get up and move around due to weakness on the day of his admission. Normally, he is able to walk with a walker, despite his morbid obesity. He was found to have elevated white blood cell count of 18,600 and the urinalysis looking infected with greater than 100 white blood cells per high-power field and positive leukocyte esterase. He had no evidence of any pneumonia on chest x-ray. He was started on IV antibiotics with ceftriaxone. Over the first 24 hours or so, he did not really improve much and continued to have an elevated white blood cell count. The concern was that he may possibly have a Pseudomonas urinary tract infection. The ceftriaxone was discontinued and he was placed on meropenem. He seemed to do a little bit better with this. Over the next several days, he gradually improved. His urine culture grew out E. coli that was basically sensitive to all common antibiotics. He continued to complain of some burning with urination and continued to spike fevers up to 102-103 range. Repeat chest x-ray was okay. There were no other abnormalities. White blood cell count continued to go down. With this ongoing, I checked a PSA level, which was elevated at 10.5. His rectal exam and prostate exam were difficult to do due to body habitus. Nevertheless, it seemed likely that he may have an acute prostatitis. He gradually improved and in the period of time between Saturday evening and Saturday he remained afebrile. He was switched to p.o. ciprofloxacin at 750 mg twice daily and did well with this. His white blood cell count stayed down in the 5000 range. By Saturday, I felt he was able to be discharged home. He had been able to resume ambulation with his walker and was able to get up and move from the bed to the bathroom to use the commode without too much difficulty. During his hospitalization, he was maintained on his dose of Lantus insulin and NovoLog insulin. He did develop an episode of hypoglycemia. His NovoLog insulin was stopped and the Lantus insulin was reduced to 70 units every 12 hours. He was really quite stable with this with blood sugars in the low 100s with this without any additional supplemental treatment. Additionally, he complained of some intermittent left-sided chest pain, which he has had for quite a number of years. He had had this ever since he had the heart catheterizations done. He did show large coronary arteries and had some mild stenosis of some of the branch arteries off of the left anterior descending. He has not been taking aspirin or a statin or a nitrate despite having had these recommended in the past. I did have him try Isosorbide dinitrate, which seemed to resolve the chest pain. He was placed back on aspirin and was placed back on atorvastatin and tolerated these okay. He desired to be NO CODE STATUS, and did not really desire any major workup of his chest pain issues. DISCHARGE INSTRUCTIONS/MEDICATIONS: Disposition: The patient is discharged home in the care of his . Medications for home will include: 1. Ciprofloxacin 750 mg p.o. b.i.d. for 15 days and this may be renewed. 2. He also will start on atorvastatin 20 mg strength 1 every evening and will begin aspirin 81 mg daily and will begin Isosorbide mononitrate 30 mg p.o. every a.m. Other medications will include: 1. Allopurinol 150 mg p.o. daily. 2. Bumetanide 1 mg daily. 3. Carvedilol 3.125 mg every 12 hours. 4. Lantus insulin 70 units every 12 hours. 5. Lisinopril 2.5 mg daily. 6. Ranitidine 150 mg at bedtime. 7. Vitamin D3 1000 units daily. He will follow up at my office in about 2 weeks. If he has any worsening, he will call and will come in sooner. He is encouraged to be active at home. He will also have home health care arranged for working with physical therapy and occupational therapy to develop his strength and with home health nurse to follow up and make sure he is doing okay with his medications and make sure he is doing okay with his diabetes.
== END 2017-03-31 09:45 | disposition home or self-care (01) | DRG 728 ==
LOC: ED SRH 07:05 → TRANS SRH 11:24 → ACUTE2 SRH 13:52
PROVIDERS: ADMIT Emergency Medicine
DX: N41.0 Acute prostatitis (principal); Z68.43 Body mass index [BMI] 50.0-59.9, adult; B96.20 Unspecified Escherichia coli [E. coli] as the cause of diseases classified elsewhere; E66.01 Morbid (severe) obesity due to excess calories; E11.42 Type 2 diabetes mellitus with diabetic polyneuropathy; E11.65 Type 2 diabetes mellitus with hyperglycemia; G47.30 Sleep apnea, unspecified; R53.1 Weakness; I10 Essential (primary) hypertension; R07.9 Chest pain, unspecified; I25.10 Atherosclerotic heart disease of native coronary artery without angina pectoris; Z98.61 Coronary angioplasty status; Z79.4 Long term (current) use of insulin; R97.20 Elevated prostate specific antigen [PSA]; E78.5 Hyperlipidemia, unspecified; J44.9 Chronic obstructive pulmonary disease, unspecified
CPT/HCPCS: 81021; 90004; 90047; 90065; 90074; 90098; 90100; 90148; 90469; 91643; 92031; 92690; 92720; 93004; 93077; 95059